=== PATIENT | female | born 1950 | race Caucasian/White ===

== ENCOUNTER 2020-04-29 06:59 | Day surgery (SDC) | payer MEDICARE ==
[~2020-04-29] VITALS: Ht 154.9 cm; Wt 89.0 kg
[2020-04-29 07:56] VITALS: BP 128/85
[2020-04-29] MEDS ORDERED: LACTATED RINGERS 1,000 ML IV SCH (08:00)
[2020-04-29] MEDS ORDERED: LIDOCAINE-MPF 1%, 2ML INFIL ONE (08:00)
[2020-04-29] MEDS ORDERED: CHLORHEXIDINE 15 ML UDC MM ONE (08:00)
[2020-04-29] MEDS ORDERED: FENTANYL PF 250 MCG/5ML ONE (08:12)
[2020-04-29] MEDS ORDERED: FLUO20CA23 PO (08:18)
[2020-04-29] MEDS ORDERED: DICL75TA3 PO (08:18)
[2020-04-29] MEDS ORDERED: PHEN37.53 PO (08:18)
[2020-04-29] MEDS ORDERED: DOXYCYCLINE PO (08:18)
[2020-04-29] MEDS ORDERED: IBUP-1223 PO (08:18)
[2020-04-29] MEDS ORDERED: MEPERIDINE/PF 25MG/0.5ML IVPush PRN (08:30)
[2020-04-29] MEDS ORDERED: LORazepam 2 MG/ML, 1ML IVPush PRN (08:30)
[2020-04-29] MEDS ORDERED: HYDROmorphone 1 MG/ML, 1ML INJ IVPush PRN (08:30)
[2020-04-29] MEDS ORDERED: ACETAMINOPHEN 325 MG TABLET PO PRN (08:30)
[2020-04-29] MEDS ORDERED: METHOCARBAMOL 1,000 MG in DEXTROSE 5% 100 ML IV PRN (08:30)
[2020-04-29] MEDS ORDERED: LABETALOL 5MG/ML, 20ML IV PRN (08:30)
[2020-04-29] MEDS ORDERED: PROMETHAZINE 25 MG/ML, 1ML IVPush PRN (08:30)
[2020-04-29] MEDS ORDERED: EPHEDRINE 50 MG/ML, 1ML IVPush PRN (08:30)
[2020-04-29] MEDS ORDERED: HALOPERIDOL 5 MG/ML IV PRN (08:30)
[2020-04-29] MEDS ORDERED: FENTANYL PF 100 MCG/2ML IV PRN (08:30)
[2020-04-29] MEDS ORDERED: OXYcodone 5 MG/5 ML ORAL.SOL UDC PO PRN (08:30)
[2020-04-29] MEDS ORDERED: hydrALAzine 20 MG/ML, 1ML IV PRN (08:30)
[2020-04-29] MEDS ORDERED: ONDANSETRON 2MG/ML, 2ML IVPush PRN (08:30)
[2020-04-29] MEDS ORDERED: KETOROLAC 30 MG/1 ML ONE (09:02)
[2020-04-29] MEDS ORDERED: SUCCINYLCHOLINE 20 MG/ML, 10ML ONE (09:02)
[2020-04-29] MEDS ORDERED: PROPOFOL 10 MG/ML, 20ML ONE (09:02)
[2020-04-29] MEDS ORDERED: ONDANSETRON 2MG/ML, 2ML ONE (09:02)
[2020-04-29] MEDS ORDERED: CEFAZOLIN 1,000 MG ONE (09:02)
[2020-04-29] MEDS ORDERED: NEOSTIGMINE 1 MG/ML, 10ML ONE (09:02)
[2020-04-29] MEDS ORDERED: DEXAMETHASONE 4 MG/ML, 1ML ONE (09:02)
[2020-04-29] MEDS ORDERED: ROCURONIUM 10 MG/ML,10ML ONE (09:02)
[2020-04-29] MEDS ORDERED: GLYCOPYRROLATE 0.2MG/1ML, 5ML ONE (09:02)
[2020-04-29] MEDS ORDERED: BUPIVACAINE/PF-EPI 0.25% 1:200K INFIL ONE (09:16)
== END 2020-04-29 13:18 | disposition home or self-care (01) ==
LOC: OUT 06:59
PROVIDERS: ATTEND Surgery
DX: K80.80 Other cholelithiasis without obstruction (principal); F41.9 Anxiety disorder, unspecified; F32.9 Major depressive disorder, single episode, unspecified; M19.90 Unspecified osteoarthritis, unspecified site; E66.9 Obesity, unspecified; Z68.37 Body mass index [BMI] 37.0-37.9, adult; Z79.1 Long term (current) use of non-steroidal anti-inflammatories (NSAID); Z79.899 Other long term (current) drug therapy; Z87.891 Personal history of nicotine dependence; Z20.828 Contact with and (suspected) exposure to other viral communicable diseases; Z98.890 Other specified postprocedural states
CPT/HCPCS: 47562; 87635; 88304; C1729; C1760; J0330; J0690; J1100; J1885; J2175; J2405; J2704; J2710; J3010; J7120